=== PATIENT | male | born 1950 | race Caucasian/White ===

== ENCOUNTER 2017-03-11 11:56 | Inpatient (IN) | payer OTHER ==
[2017-03-11 12:43] VITALS: BMI 25.1
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
[2017-03-11] MEDS ORDERED: LOPERAMIDE HCL 2 MG CAPSULE PO PRN (13:10)
[2017-03-11] MEDS ORDERED: hydrOXYzine PAMOATE 50 MG CAPSULE (FP) PO PRN (13:10)
[2017-03-11] MEDS ORDERED: MAGNESIUM CITRATE 300 ML BOTTLE PO PRN (13:10)
[2017-03-11] MEDS ORDERED: MENTHOL/PHENOL 1 EACH UD MM PRN (13:10)
[2017-03-11] MEDS ORDERED: ACETAMINOPHEN 325 MG TABLET (FP) PO PRN (13:10)
[2017-03-11] MEDS ORDERED: MAG HYDROX/AL HYDROX/SIMETH 30 ML UNIT-DOSE CUP PO PRN (13:10)
[2017-03-11] MEDS ORDERED: MAGNESIUM HYDROX 2400MG/30ML ORAL SUSPENSION 30 ML CUP PO PRN (13:10)
[2017-03-11] MEDS ORDERED: P-EPHED 60MG/TRIPROLIDI 2.5MG TABLET PO PRN (13:10)
[2017-03-11] MEDS ORDERED: diphenhydrAMINE HCL 50 MG CAPSULE PO PRN (13:10)
[2017-03-11] MEDS ORDERED: guaiFENesin/D-METHORPHAN HB 10 ML UNIT-DOSE CUPS PO PRN (13:10)
[2017-03-11] MEDS ORDERED: IBUPROFEN 400 MG TABLET (FP) PO PRN (13:10)
[2017-03-11] MEDS ORDERED: TUBERCULIN PPD 5 TU/0.1ML VIAL ID ONE (14:58)
[2017-03-11 16:25] LABS: URINE APPEARANCE CLEAR; URINE BILIRUBIN NEGATIVE (NEGATIVE); URINE BLOOD NEGATIVE (NEGATIVE); URINE COLOR LTYELLOW; URINE GLUCOSE (UA) NEGATIVE (NEGATIVE); URINE KETONE NEGATIVE (NEGATIVE); URINE LEUK ESTERASE NEGATIVE (NEGATIVE); URINE NITRITE NEGATIVE (NEGATIVE); URINE PROTEIN NEGATIVE (NEGATIVE); URINE UROBILINOGEN NEGATIVE mg/dL (0.2-1.0)
[2017-03-11 16:33] LABS: MCH 24.8 pg (25.7-33.7); MCHC 32.2 g/dl (32.0-35.9); MEAN CELL VOLUME 76.9 fl (80-96); MEAN PLT VOLUME 8.4 fl (7.5-11.1); PLATELET COUNT 261 K/MM3 (134-434); RDW 19.7 % (11.9-15.9); WHITE BLOOD COUNT 8.1 K/mm3 (4.0-10.0)
[2017-03-11 16:42] LABS: ALBUMIN 3.6 g/dl (3.4-5.0); ANION GAP 6 (8-16); CALCIUM 9.1 mg/dL (8.5-10.1); CO2 26 mmol/L (21-32); GLUCOSE,RANDOM 103 mg/dL (74-106); SGPT/ALT 12 U/L (12-78)
[2017-03-11 16:45] LABS: ALK PHOS 84 U/L (45-117); BILIRUBIN,TOTAL 0.4 mg/dL (0.2-1.0); SGOT/AST 10 U/L (15-37); TOT PROT 7.8 g/dl (6.4-8.2)
[2017-03-11] MEDS: THIAMINE HCL 100 MG TABLET (FP) PO SCH (21:12)
[2017-03-11] MEDS: HALOPERIDOL 5 MG TABLET (FP) PO SCH (21:12)
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
[2017-03-12] MEDS: TRIHEXYPHENIDYL HCL 2 MG TABLET PO SCH (09:45)
[2017-03-12] MEDS: PRENATAL VITAMINS W/ FOLIC ACID TABLET (FP) PO SCH (09:45)
[2017-03-12] MEDS: HALOPERIDOL 5 MG TABLET (FP) PO SCH ×2 (10:36→21:27)
[2017-03-12] MEDS: THIAMINE HCL 100 MG TABLET (FP) PO SCH (21:27)
--- NOTE | 2017-03-13 09:52 | EKG ---
Test Reason : Blood Pressure : / mmHG Vent. Rate : 089 BPM Atrial Rate : 089 BPM P-R Int : 180 ms QRS Dur : 084 ms QT Int : 364 ms P-R-T Axes : 046 040 040 degrees QTc Int : 442 ms NORMAL SINUS RHYTHM NORMAL ECG NO PREVIOUS ECGS AVAILABLE Confirmed by PETE MAHONEY, AUGUSTINE ([id number]) on 03/13/2017 9:52:05 AM Referred By: Maykel Ernandez Confirmed By:AUGUSTINE FREEMAN MD
[2017-03-13] MEDS: TRIHEXYPHENIDYL HCL 2 MG TABLET PO SCH (10:25)
[2017-03-13] MEDS: PRENATAL VITAMINS W/ FOLIC ACID TABLET (FP) PO SCH (10:25)
[2017-03-13] MEDS: HALOPERIDOL 5 MG TABLET (FP) PO SCH ×2 (10:25→21:51)
--- NOTE | 2017-03-13 13:22 | PN ---
[facility] Progress Note Note: deformity of left big toenail,advise to see barrel tester and drainer
[2017-03-13] MEDS: THIAMINE HCL 100 MG TABLET (FP) PO SCH (21:54)
[2017-03-14] MEDS: PRENATAL VITAMINS W/ FOLIC ACID TABLET (FP) PO SCH (09:59)
[2017-03-14] MEDS: HALOPERIDOL 5 MG TABLET (FP) PO SCH ×2 (09:59→21:44)
[2017-03-14] MEDS: TRIHEXYPHENIDYL HCL 2 MG TABLET PO SCH (09:59)
[2017-03-14] MEDS: THIAMINE HCL 100 MG TABLET (FP) PO SCH (21:44)
[2017-03-15] MEDS: HALOPERIDOL 5 MG TABLET (FP) PO SCH ×2 (09:39→21:08)
[2017-03-15] MEDS: TRIHEXYPHENIDYL HCL 2 MG TABLET PO SCH (09:39)
[2017-03-15] MEDS: PRENATAL VITAMINS W/ FOLIC ACID TABLET (FP) PO SCH (09:39)
[2017-03-15] MEDS: THIAMINE HCL 100 MG TABLET (FP) PO SCH (21:08)
[2017-03-16] MEDS: TRIHEXYPHENIDYL HCL 2 MG TABLET PO SCH (09:52)
[2017-03-16] MEDS: PRENATAL VITAMINS W/ FOLIC ACID TABLET (FP) PO SCH (09:52)
[2017-03-16] MEDS: HALOPERIDOL 5 MG TABLET (FP) PO SCH ×2 (11:11→21:04)
[2017-03-16] MEDS: THIAMINE HCL 100 MG TABLET (FP) PO SCH (21:04)
[2017-03-17] MEDS: PRENATAL VITAMINS W/ FOLIC ACID TABLET (FP) PO SCH (09:55)
[2017-03-17] MEDS: HALOPERIDOL 5 MG TABLET (FP) PO SCH ×2 (09:55→21:09)
[2017-03-17] MEDS: TRIHEXYPHENIDYL HCL 2 MG TABLET PO SCH (09:56)
[2017-03-17] MEDS: THIAMINE HCL 100 MG TABLET (FP) PO SCH (21:09)
[2017-03-18] MEDS: TRIHEXYPHENIDYL HCL 2 MG TABLET PO SCH (09:49)
[2017-03-18] MEDS: PRENATAL VITAMINS W/ FOLIC ACID TABLET (FP) PO SCH (09:49)
[2017-03-18] MEDS: HALOPERIDOL 5 MG TABLET (FP) PO SCH ×2 (09:49→21:41)
[2017-03-18] MEDS: THIAMINE HCL 100 MG TABLET (FP) PO SCH (21:41)
[2017-03-19 07:12] VITALS: BP 103/71; PULSE 90; TEMP 98.1
[2017-03-19] MEDS: TRIHEXYPHENIDYL HCL 2 MG TABLET PO SCH (09:32)
[2017-03-19] MEDS: PRENATAL VITAMINS W/ FOLIC ACID TABLET (FP) PO SCH (09:32)
[2017-03-19] MEDS: HALOPERIDOL 5 MG TABLET (FP) PO SCH (09:32)
--- NOTE | 2017-03-19 10:35 | PN ---
Psychiatric Progress Note Vital Signs: Vital Signs Period Temp Pulse Resp BP Sys/Simth Pulse Ox Last 24 Hr 98.1 F 90 16-18 103/71 Date of Session: 03/19/17 Chief Complaint:: Discharge Note HPI: Patient addressing Cocaine Dependence comorbid with Nicotine Dependence and Schizophrenia ROS: Hep C Current Medications: Active Medications Generic Name Dose Route Start Last Admin Trade Name Freq PRN Reason Stop Dose Admin Acetaminophen 650 mg 03/11/17 13:10 Tylenol - PO Q4H PRN PAIN Al Hydroxide/Mg Hydroxide 30 ml 03/11/17 13:10 Mylanta Oral Suspension - PO Q6H PRN DYSPEPSIA Diphenhydramine HCl 50 mg 03/11/17 13:10 Benadryl - PO HSMR1 PRN INSOMNIA Eucalyptus/Menthol/Phenol/Sorbitol 1 each 03/11/17 13:10 Cepastat Lozenge - MM Q4H PRN SORE THROAT Guaifenesin 10 ml 03/11/17 13:10 Robitussin Dm - PO Q6H PRN COUGH Haloperidol 10 mg 03/11/17 22:00 03/19/17 09:32 Haldol - PO 10 mg BID JACQUES Administration Hydroxyzine Pamoate 50 mg 03/11/17 13:10 Vistaril - PO Q4H PRN AGITATION Ibuprofen 400 mg 03/11/17 13:10 Motrin - PO Q6H PRN SEVERE PAIN Loperamide HCl 4 mg 03/11/17 13:10 Imodium - PO Q6H PRN DIARRHEA Magnesium Citrate 300 ml 03/11/17 13:10 Citroma - PO Q48H PRN CONSTIPATION Magnesium Hydroxide 30 ml 03/11/17 13:10 Milk Of Magnesia - PO DAILY PRN CONSTIPATION Multivit/Folic Acid/Iron 1 tab 03/12/17 10:00 03/19/17 09:32 Vitamins ([facility]) - PO 1 tab DAILY JACQUES Administration Pseudoephedrine/Triprolidine 1 combo 03/11/17 13:10 Actifed - PO TID PRN NASAL CONGESTION Thiamine HCl 100 mg 03/11/17 22:00 03/18/17 21:41 Vitamin B1 - PO 100 mg HS JACQUES Administration Trihexyphenidyl HCl 2 mg 03/12/17 10:00 03/19/17 09:32 Artane - PO 2 mg DAILY JACQUES Administration Current Side Effect: No Lab tests ordered: Yes Lab tests reviewed: Yes Provider note:: Patient has completed this program today. He has met his short term goals and will continue to address his issues in outpatient treatment at [facility]. Told keno writer/runner that from his participation in this program, he has learned the importance of adherence to his outpatient treatment in order to maintain sobriety. He responded well to Haldol 10 mg po BID and Artane 2 mg po daily. Scripts for 30 days supply of these medications are electronically transmitted to [facility] at [address] [place] [address]. He is stable for discharge today Total face to face time:: 35 Mental Status Exam - Mental Status Exam Alert and Oriented to: Time, Place, Person Cognitive Function: Fair Patient Appearance: Well Groomed Mood: Hopeful, Euthymic Affect: Blunted Patient Behavior: Cooperative Speech Pattern: Clear Voice Loudness: Normal Thought Process: Intact, Goal Oriented Thought Disorder: Not Present Hallucinations: Denies Suicidal Ideation: Denies Homicidal Ideation: Denies Insight/Judgement: Fair Sleep: Well Appetite: Good Muscle strength/Tone: Normal Gait/Station: Normal Psychiatric Treatment Plan - Problem List (1) Cocaine dependence Current Visit: Yes (2) Nicotine dependence Current Visit: Yes (3) Schizophrenia Current Visit: Yes (4) Hepatitis C Current Visit: Yes Initial treatment plan: Patient is discharged today and referred to [facility] for outpatient treatment
== END 2017-03-19 10:50 | disposition home or self-care (01) | DRG 951 ==
LOC: YASAS 11:56 → Y3W 13:04
PROVIDERS: ADMIT Psychiatry & Neurology Psychiatry; ATTEND Psychiatry & Neurology Psychiatry
PROC: HZ42ZZZ Group Counseling for Substance Abuse Treatment, Cognitive-Behavioral (ICD-10-PCS; principal; 2017-03-11)
DX: F17.210 Nicotine dependence, cigarettes, uncomplicated (principal); F20.9 Schizophrenia, unspecified; B18.2 Chronic viral hepatitis C
CPT/HCPCS: 36415; 80053; 81003; 85027; 86593; 93005; 93010

== ENCOUNTER 2017-09-09 14:21 | Inpatient (IN) | payer OTHER ==
[2017-09-09 16:52] VITALS: BMI 25.1
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
[2017-09-09] MEDS ORDERED: MAGNESIUM CITRATE 300 ML BOTTLE PO PRN (19:11)
[2017-09-09] MEDS ORDERED: MAGNESIUM HYDROX 2400MG/30ML ORAL SUSPENSION 30 ML CUP PO PRN (19:11)
[2017-09-09] MEDS ORDERED: LOPERAMIDE HCL 2 MG CAPSULE PO PRN (19:11)
[2017-09-09] MEDS ORDERED: MENTHOL/PHENOL 1 EACH UD MM PRN (19:11)
[2017-09-09] MEDS ORDERED: IBUPROFEN 400 MG TABLET (FP) PO PRN (19:11)
[2017-09-09] MEDS ORDERED: hydrOXYzine PAMOATE 50 MG CAPSULE (FP) PO PRN (19:11)
[2017-09-09] MEDS ORDERED: guaiFENesin/D-METHORPHAN HB 10 ML UNIT-DOSE CUPS PO PRN (19:11)
[2017-09-09] MEDS ORDERED: NICOTINE POLACRILEX 2 MG GUM BC PRN (19:11)
[2017-09-09] MEDS ORDERED: P-EPHED 60MG/TRIPROLIDI 2.5MG TABLET PO PRN (19:11)
[2017-09-09] MEDS ORDERED: ACETAMINOPHEN 325 MG TABLET (FP) PO PRN (19:11)
[2017-09-09] MEDS ORDERED: MAG HYDROX/AL HYDROX/SIMETH 30 ML UNIT-DOSE CUP PO PRN (19:11)
[2017-09-09] MEDS: THIAMINE HCL 100 MG TABLET (FP) PO SCH (21:56)
[2017-09-09] MEDS ORDERED: MELATONIN 5 MG TABLETS PO PRN (22:00)
[2017-09-10 02:05] LABS: URINE APPEARANCE CLEAR; URINE BILIRUBIN NEGATIVE (<2.0 mg/dL); URINE BLOOD NEGATIVE (NEGATIVE); URINE COLOR YELLOW; URINE GLUCOSE (UA) NEGATIVE (NEGATIVE); URINE KETONE NEGATIVE (NEGATIVE); URINE LEUK ESTERASE NEGATIVE (NEGATIVE); URINE NITRITE NEGATIVE (NEGATIVE); URINE PROTEIN NEGATIVE (NEGATIVE); URINE UROBILINOGEN NEGATIVE mg/dL (0.2-1.0)
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
[2017-09-10 10:06] LABS: HEMATOCRIT 38.7 % (35.4-49); HEMOGLOBIN 12.9 GM/dL (11.7-16.9); MCH 28.3 pg (25.7-33.7); MCHC 33.3 g/dl (32.0-35.9); MEAN PLT VOLUME 8.1 fl (7.5-11.1); PLATELET COUNT 244 K/MM3 (134-434); RBC 4.56 M/mm3 (4.00-5.60)
[2017-09-10] MEDS: NICOTINE 14 MG/24 HOURS TOPICAL PATCH TD SCH (10:06)
[2017-09-10] MEDS: PRENATAL VITAMINS W/ FOLIC ACID TABLET (FP) PO SCH (10:06)
[2017-09-10] MEDS: HALOPERIDOL 5 MG TABLET (FP) PO SCH ×2 (10:08→21:38)
[2017-09-10] MEDS: TRIHEXYPHENIDYL HCL 2 MG TABLET PO SCH ×2 (10:10→21:38)
[2017-09-10 10:21] LABS: CHLORIDE 108 mmol/L (98-107); POTASSIUM 4.2 mmol/L (3.5-5.1); SODIUM 139 mmol/L (136-145)
[2017-09-10 10:32] LABS: ALBUMIN 3.2 g/dl (3.4-5.0); ALK PHOS 88 U/L (45-117); ANION GAP 5 (8-16); BILIRUBIN,TOTAL 0.1 mg/dL (0.2-1.0); BLOOD UREA NITROGEN 16 mg/dL (7-18); CALCIUM 8.4 mg/dL (8.5-10.1); CO2 26 mmol/L (21-32); CREATININE 1.2 mg/dL (0.7-1.3); GLUCOSE,RANDOM 89 mg/dL (74-106); SGOT/AST 14 U/L (15-37); SGPT/ALT 19 U/L (12-78); TOT PROT 6.8 g/dl (6.4-8.2)
--- NOTE | 2017-09-10 16:45 | EKG ---
Test Reason : Blood Pressure : / mmHG Vent. Rate : 097 BPM Atrial Rate : 097 BPM P-R Int : 156 ms QRS Dur : 070 ms QT Int : 328 ms P-R-T Axes : 060 059 051 degrees QTc Int : 416 ms NORMAL SINUS RHYTHM NORMAL ECG WHEN COMPARED WITH ECG OF 09-SEP-2017 21:03, NO SIGNIFICANT CHANGE WAS FOUND Confirmed by MD Randall Edward ([id number]) on 09/10/2017 4:44:33 PM Referred By: Confirmed By:Broderick Randall MD
--- NOTE | 2017-09-10 16:49 | EKG ---
Test Reason : Blood Pressure : / mmHG Vent. Rate : 092 BPM Atrial Rate : 092 BPM P-R Int : 156 ms QRS Dur : 066 ms QT Int : 324 ms P-R-T Axes : 061 052 061 degrees QTc Int : 400 ms NORMAL SINUS RHYTHM artifact WHEN COMPARED WITH ECG OF 11-MAR-2017 14:27, NO SIGNIFICANT CHANGE WAS FOUND Confirmed by MD Randall Edward ([id number]) on 09/10/2017 4:49:06 PM Referred By: Confirmed By:Broderick Randall MD
[2017-09-10] MEDS: THIAMINE HCL 100 MG TABLET (FP) PO SCH (21:38)
[2017-09-11] MEDS: NICOTINE 14 MG/24 HOURS TOPICAL PATCH TD SCH (10:05)
[2017-09-11] MEDS: PRENATAL VITAMINS W/ FOLIC ACID TABLET (FP) PO SCH (10:05)
[2017-09-11] MEDS: TRIHEXYPHENIDYL HCL 2 MG TABLET PO SCH ×2 (10:06→21:36)
[2017-09-11] MEDS: HALOPERIDOL 5 MG TABLET (FP) PO SCH ×2 (10:06→21:36)
[2017-09-11] MEDS: THIAMINE HCL 100 MG TABLET (FP) PO SCH (21:36)
[2017-09-12] MEDS: NICOTINE 14 MG/24 HOURS TOPICAL PATCH TD SCH (09:38)
[2017-09-12] MEDS: HALOPERIDOL 5 MG TABLET (FP) PO SCH ×2 (09:38→21:19)
[2017-09-12] MEDS: PRENATAL VITAMINS W/ FOLIC ACID TABLET (FP) PO SCH (09:38)
[2017-09-12] MEDS: TRIHEXYPHENIDYL HCL 2 MG TABLET PO SCH ×2 (09:38→21:19)
[2017-09-12] MEDS: THIAMINE HCL 100 MG TABLET (FP) PO SCH (21:19)
[2017-09-13 07:24] VITALS: BP 110/64; PULSE 84; TEMP 97.6
[2017-09-13] MEDS: PRENATAL VITAMINS W/ FOLIC ACID TABLET (FP) PO SCH (09:36)
[2017-09-13] MEDS: TRIHEXYPHENIDYL HCL 2 MG TABLET PO SCH (09:36)
[2017-09-13] MEDS: HALOPERIDOL 5 MG TABLET (FP) PO SCH (09:36)
[2017-09-13] MEDS: NICOTINE 14 MG/24 HOURS TOPICAL PATCH TD SCH (09:37)
--- NOTE | 2017-09-13 11:20 | PN ---
Psychiatric Progress Note Vital Signs: Vital Signs Period Temp Pulse Resp BP Sys/Smith Pulse Ox Last 24 Hr 97.6 F 84 18-18 110/64 Date of Session: 09/13/17 Chief Complaint:: AMA Discharge Note HPI: Patient addressing Cocaine Dependence comorbid with Nicotine Dependence, Schizophrenia ROS: Hep C Current Medications: Active Medications Generic Name Dose Route Start Last Admin Trade Name Freq PRN Reason Stop Dose Admin Acetaminophen 650 mg 09/09/17 19:11 Tylenol - PO Q4H PRN FEVER Al Hydroxide/Mg Hydroxide 30 ml 09/09/17 19:11 Mylanta Oral Suspension - PO Q6H PRN DYSPEPSIA Eucalyptus/Menthol/Phenol/Sorbitol 1 each 09/09/17 19:11 Cepastat Lozenge - MM Q4H PRN SORE THROAT Guaifenesin 10 ml 09/09/17 19:11 Robitussin Dm - PO Q6H PRN COUGH Haloperidol 10 mg 09/10/17 10:00 09/13/17 09:36 Haldol - PO 10 mg BID JACQUES Administration Hydroxyzine Pamoate 50 mg 09/09/17 19:11 Vistaril - PO Q4H PRN AGITATION Ibuprofen 400 mg 09/09/17 19:11 Motrin - PO Q6H PRN Pain level 4-6 Loperamide HCl 4 mg 09/09/17 19:11 Imodium - PO Q6H PRN DIARRHEA Magnesium Citrate 300 ml 09/09/17 19:11 Citroma - PO Q48H PRN CONSTIPATION Magnesium Hydroxide 30 ml 09/09/17 19:11 Milk Of Magnesia - PO DAILY PRN CONSTIPATION Melatonin 5 mg 09/09/17 22:00 Melatonin PO HS PRN INSOMNIA Nicotine 14 mg 09/10/17 10:00 09/13/17 09:37 Nicoderm Patch - TD Not Given DAILY JACQUES Nicotine Polacrilex 2 mg 09/09/17 19:11 Nicorette Gum - BC Q2H PRN NICOTINE REPLACEMENT RX Multivit/Folic Acid/Iron 1 tab 09/10/17 10:00 09/13/17 09:36 Vitamins (Sjr) - PO 1 tab DAILY JACQUES Administration Pseudoephedrine/Triprolidine 1 combo 09/09/17 19:11 Actifed - PO TID PRN NASAL CONGESTION Thiamine HCl 100 mg 09/09/17 22:00 09/12/17 21:19 Vitamin B1 - PO 100 mg HS JACQUES Administration Trihexyphenidyl HCl 2 mg 09/10/17 10:00 09/13/17 09:36 Artane - PO 2 mg BID JACQUES Administration Current Side Effect: No Lab tests ordered: Yes Lab tests reviewed: Yes Provider note:: Patient has complted this program. He wants to leave against medical advice citing:"I don't feel comfortable here" He was determined to leave despite telling him that we are open to discuss things we have to do to make him comfortable. Scripts for 30 days supply of his medications(Haldol, Artane) were electronically transmitted to [facility] at [address] [place] [address]. He is stable for discharge against medical advice today Total face to face time:: 25 Mental Status Exam - Mental Status Exam Alert and Oriented to: Time, Place, Person Cognitive Function: Fair Patient Appearance: Well Groomed Mood: Hopeful, Euthymic Affect: Appropriate Patient Behavior: Cooperative Speech Pattern: Clear Voice Loudness: Normal Thought Process: Intact, Goal Oriented Thought Disorder: Not Present Hallucinations: Denies Suicidal Ideation: Denies Homicidal Ideation: Denies Insight/Judgement: Poor Sleep: Fair Appetite: Good Muscle strength/Tone: Normal Gait/Station: Normal Psychiatric Treatment Plan - Problem List (1) Cocaine dependence Current Visit: Yes Qualifiers: Substance use status: uncomplicated Qualified Code(s): F14.20 - Cocaine dependence, uncomplicated (2) Nicotine dependence Current Visit: Yes Qualifiers: Nicotine product type: cigarettes (3) Schizophrenia Current Visit: No (4) Hepatitis C Current Visit: No Initial treatment plan: Patient is discharged AMA today
== END 2017-09-13 11:42 | disposition left against medical advice (07) | DRG 894 ==
LOC: YASAS 14:21 → Y3W 17:04
PROVIDERS: ADMIT Psychiatry & Neurology Psychiatry; ATTEND Psychiatry & Neurology Psychiatry
PROC: HZ42ZZZ Group Counseling for Substance Abuse Treatment, Cognitive-Behavioral (ICD-10-PCS; principal; 2017-09-09)
DX: F14.20 Cocaine dependence, uncomplicated (principal); F17.210 Nicotine dependence, cigarettes, uncomplicated; F20.9 Schizophrenia, unspecified; B18.2 Chronic viral hepatitis C; E86.0 Dehydration
CPT/HCPCS: 36415; 80053; 81003; 85027; 86593; 93005; 93010